=== PATIENT | female | born 1990 | race Two or more races ===

== ENCOUNTER 2022-06-02 20:02 | Emergency (ER) | payer OTHER ==
[~2022-06-02] VITALS: Ht 157.5 cm; Wt 60.8 kg
[2022-06-02 21:34] LABS: Basophils # (auto) 0.1 10 ^3/uL (0-0.2); Eosinophils # (auto) 0.1 10 ^3/uL (0-0.8); Eosinophils % (auto) 1.8 % (0.0-7.0); Hematocrit 40.4 % (36.0-46.0); Hemoglobin 13.6 g/dL (12.2-16.2); Lymphocytes # (auto) 2.3 10 ^3/uL (0.4-5.4); Lymphocytes % (auto) 35.2 % (10.0-50.0); Mean Corpuscular Hemoglobin 29.7 pg (28.0-32.0); Mean Corpuscular Hgb Conc. 33.6 g/dL (32.0-36.0); Mean Corpuscular Volume 88.5 fL (80.0-100.0); Monocytes # (auto) 0.5 10 ^3/uL (0-1.3); Monocytes % (auto) 7.7 % (0.0-12.0); Neutrophils # (auto) 3.5 10 ^3/uL (1.6-8.6); Neutrophils % (auto) 54.3 % (37.0-80.0); Nucleated Red Blood Cells % 0.1 %; Red Blood Cells 4.57 10^6/uL (4.0-5.20); Red Cell Distribution Width 14.2 % (11.8-14.3); White Blood Cell 6.4 10^3/uL (4.4-10.8)
[2022-06-02 21:45] LABS: Urine Bacteria NONE SEEN /hpf (None Seen); Urine Blood Negative /uL (Negative); Urine Specific Gravity 1.013 (1.001-1.035); Urine WBC 11 /hpf (0 - 5)
[2022-06-02 21:54] LABS: Albumin 3.9 g/dL (3.4-5.0); BUN/Creatinine Ratio 23.7 (10.0-20.0); Calcium 8.9 mg/dL (8.5-10.1); Magnesium 2.4 mg/dL (1.6-2.6); Potassium 3.9 mmol/L (3.5-5.1)
[2022-06-02 21:57] LABS: Bilirubin, Total 0.2 mg/dL (0.2-1.0); Total Protein 7.6 g/dL (6.4-8.2)
[2022-06-02] MEDS ORDERED: NITR-87 PO (23:58)
[2022-06-03 00:15] VITALS: BP 130/78
== END 2022-06-03 00:18 | disposition home or self-care (01) ==
LOC: ER 20:02
DX: E05.90 Thyrotoxicosis, unspecified without thyrotoxic crisis or storm (principal); N39.0 Urinary tract infection, site not specified; E03.9 Hypothyroidism, unspecified
CPT/HCPCS: 36415; 71045; 80053; 81001; 83735; 84436; 84443; 84480; 85025; 93005